=== PATIENT | male | born 1925 | race Caucasian/White ===

== ENCOUNTER 2016-09-10 03:14 | Emergency (ER) | payer MEDICARE, BC ==
[~2016-09-10] VITALS: Ht 170.2 cm; Wt 69.9 kg
[~2016-09-10 03:14] MED LIST: [UNRECOGNIZED DRUG - REMARK]
--- NOTE | 2016-09-10 03:20 | NUR ---
To bed 5 a 89 yo male bibra with c/o headache on the left frontal area, dull and steady pain at 6/10 since 1300 yesterday, with dizziness. Patient is aaox3, no s/s of acute distress. Breathing even and unlabored. Gowned. Placed on erp business analyst. Awaiting for er md epstein.
[2016-09-10] MEDS ORDERED: ACETAMINOPHEN ES 500 MG TABLET PO ONE (04:00)
[2016-09-10 04:05] LABS: BASOPHILS % (AUTO) 0.2 % (0.0-2.0); EOSINOPHILS # (AUTO) 0.1 /CMM (0.0-0.7); EOSINOPHILS % (AUTO) 1.2 % (0.0-6.0); HEMATOCRIT 37 % (39-51); HEMOGLOBIN 12.6 g/dL (13.5-17.5); LYMPHOCYTES # (AUTO) 0.8 /CMM (0.8-4.8); LYMPHOCYTES % (AUTO) 10.3 % (20.0-44.0); MEAN CORPUSCULAR HEMOGLOBIN 30 PG (26.0-33.0); MEAN CORPUSCULAR HGB CONC 34 g/dl (31.0-36.0); MEAN CORPUSCULAR VOLUME 89 fL (80-96); MONOCYTES # (AUTO) 0.8 /CMM (0.1-1.30); MONOCYTES % (AUTO) 10.5 % (2.0-12.0); NEUTROPHILS # (AUTO) 6.3 /CMM (1.8-8.9); NEUTROPHILS % (AUTO) 77.8 % (43.0-81.0); PLATELET COUNT (AUTO) 246 /CMM (150-450); RDW COEFFICIENT OF VARIATION 13.7 (11.5-15.0); RED BLOOD CELL COUNT(AUTO) 4.19 MIL/uL (4.5-6.0); WHITE BLOOD COUNT (AUTO) 8.1 K/uL (4.3-11.0)
[2016-09-10] MEDS ORDERED: ACETAMINOPHEN ES 500 MG TABLET ONE (04:10)
[2016-09-10 04:16] LABS: CALCIUM, SERUM 9.1 mg/dL (8.5-10.1); CARBON DIOXIDE 24 mmol/L (21-32); CHLORIDE 95 mmol/L (98-107); CREATININE 0.9 mg/dL (0.6-1.3); GLUCOSE 98 mg/dL (74-106); SODIUM SERUM 129 mmol/L (136-145); UREA NITROGEN, BLOOD 18 mg/dL (7-18)
[2016-09-10 04:25] LABS: TROPONIN I < 0.017 ng/mL (0.00-0.056)
[2016-09-10 04:31] LABS: PROTHROMBIN TIME 10.7 SECS (9.5-12.7)
[2016-09-10] MEDS ORDERED: LIDOCAINE 2% JEL UROJET 10 ML MM ONE ×2 (05:13→05:30)
--- NOTE | 2016-09-10 05:36 | NUR ---
inserted cee cath aseptically per Dr Turner orders after voiding, magdi well. Drained about 400cc of red stained urine, no clots noted. Per ted Yen to send patient home with cee catheter.
[2016-09-10 05:42] LABS: APPEARANCE,URINE SL CLOUDY (CLEAR); BILIRUBIN,URINE NEGATIVE (NEGATIVE); BLOOD, URINE 3+ Ery/uL (NEGATIVE); COLOR,URINE YELLOW (YELLOW); KETONES,URINE TRACE (NEGATIVE); LEUKOCYTE ESTERASE ,URINE TRACE (NEGATIVE); NITRITE, URINE POSITIVE (NEGATIVE); PH,URINE 6.5 (5.0-8.0); PROTEIN,URINE 2+ mg/dl (NEGATIVE); UGLUCOSE NEGATIVE (NEGATIVE); UROBILINOGEN,URINE 0.2 EU/dL (0.2)
[2016-09-10 05:48] LABS: ADD URINE CULTURE YES; BACTERIA,URINE None seen /HPF (None Seen); RBC,URINE TOO NUMEROUS TO COUN /HPF (0-2); SQUAMOUS EPITHELIAL CELL,UR Few /HPF (None Seen)
--- NOTE | 2016-09-10 06:33 | NUR ---
Patient discharged to home in stable condition. Written and verbal after care instructions given. Patient verbalizes understanding of instruction. Patient is ambulatory with a steady gait.
[2016-09-10 06:36] VITALS: BP 146/68
== END 2016-09-10 06:33 | disposition home or self-care (01) ==
LOC: ER 03:16
DX: R51 Headache (principal); I10 Essential (primary) hypertension; R79.1 Abnormal coagulation profile; R82.79 Other abnormal findings on microbiological examination of urine
CPT/HCPCS: 36415; 70450-TC; 71010-TC; 80048-TC; 81000-TC; 84484-TC; 85025-TC; 85730-TC; 87086-TC; A4606; J3490; Z7610